=== PATIENT | female | born 1960 | race African-American/Black ===

== ENCOUNTER 2022-10-16 14:37 | Emergency (ER) | payer MEDICAID ==
[~2022-10-16] VITALS: Ht 157.5 cm; Wt 78.0 kg
[2022-10-16] MEDS ORDERED: ACETAMINOPHEN 325MG TABLET PO STA (17:26)
[2022-10-16] MEDS ORDERED: SILVER SULFADIAZINE 1% CREAM 25GM TOP ONE (17:30)
[2022-10-16] MEDS ORDERED: NAPR-681 PO (18:01)
[2022-10-16] MEDS ORDERED: CEPH500C2 PO (18:01)
[2022-10-16] MEDS ORDERED: SILV50CR31 TP (18:01)
[2022-10-16 18:45] VITALS: BP 142/85
== END 2022-10-16 18:46 | disposition home or self-care (01) ==
LOC: ER 14:37
DX: T20.25XA Burn of second degree of scalp [any part], initial encounter (principal); T20.26XA Burn of second degree of forehead and cheek, initial encounter; T20.111A Burn of first degree of right ear [any part, except ear drum], initial encounter; H60.11 Cellulitis of right external ear; X08.8XXA Exposure to other specified smoke, fire and flames, initial encounter; Y93.89 Activity, other specified; F17.210 Nicotine dependence, cigarettes, uncomplicated; Y92.012 Bathroom of single-family (private) house as the place of occurrence of the external cause
CPT/HCPCS: 16020; 99283